=== PATIENT | female | born 1955 | race African-American/Black ===

== ENCOUNTER 2022-01-07 10:02 | Emergency (ER) | payer MEDICAID, OTHER ==
[~2022-01-07] VITALS: Ht 170.2 cm; Wt 110.0 kg
[~2022-01-07 10:02] MED LIST: ACET-3161; CARV3.1242; CLON0.1T; DICL75TA5; DOCU100C57; FLUT1DIS3; NAP5EC; POTA10CA42; PRAV40TA
[2022-01-07] MEDS ORDERED: NITROGLYCERIN 0.4MG TABLET SL SL PRN (15:15)
[2022-01-07] MEDS ORDERED: ASPIRIN 81MG TABLET PO ONE (15:15)
[2022-01-07 15:54] LABS: CHLORIDE 110 mEq/L (98-107)
[2022-01-07 15:56] LABS: BASOPHILS % 0.5 % (0.0-2.0); EOSINOPHILS % 2.1 % (0.0-5.0); HEMATOCRIT. 38.5 % (36.0-48.0); HEMOGLOBIN. 12.5 g/dL (12.0-16.0); LYMPHOCYTES % 43.2 % (20.0-50.0); MEAN CORPUSCULAR VOLUME 89.1 fL (81.0-99.0); MEAN PLATELET VOLUME 7.8 fl (7.4-10.4); MONOCYTES % 7.9 % (2.0-8.0); NEUTROPHILS % 46.3 % (40.0-76.0); PLATELET 255 x1000/uL (130-400); RED BLOOD CELL COUNT 4.33 mill/uL (4.2-5.4); RED CELL DISTRIBUTION WIDTH 15.5 % (11.6-14.6)
[2022-01-07] MEDS ORDERED: DILTIAZEM HCL 120MG CAPSULE CD 24HR PO SCH (16:15)
[2022-01-07 16:18] LABS: D-DIMER 0.26 mg/L FEU (<0.50); INR 1.2; PROTHROMBIN TIME 12.3 sec (9.6-11.0)
[2022-01-07 18:45] VITALS: BP 145/81
== END 2022-01-07 19:15 | disposition short-term general hospital (02) ==
LOC: ER 10:39
DX: R07.2 Precordial pain (principal); I50.9 Heart failure, unspecified; I34.0 Nonrheumatic mitral (valve) insufficiency; Z20.822 Contact with and (suspected) exposure to COVID-19; E66.9 Obesity, unspecified; Z68.38 Body mass index [BMI] 38.0-38.9, adult; Z71.3 Dietary counseling and surveillance
CPT/HCPCS: 36415; 71045; 80053; 83880; 84484; 85025; 85379; 85610; 85730; 87426; 93005; 99285; Z7610